=== PATIENT | male | born 1930 | race Caucasian/White ===

== ENCOUNTER → 2016-06-10 | Outpatient (CLI) | payer MEDICARE ==
[~2016-06-10] MED LIST: ACT300 PO; ANACIN PO; ASPCH81X PO; CRS20 PO; CYM30 PO; FINA5TAB4 PO; HYDR-5688 PO; ISR20 PO; LISI5TAB PO; LPR25 PO; METO25TA3 PO; PRED10TA PO; RIVA3CAP4 PO; SITA100T3 PO; SPRIN/30 INH; TAMS0.4C38 PO; TIOT1SPR INH; TIOTCAP INH; [UNRECOGNIZED DRUG - CODE] OPB; [UNRECOGNIZED DRUG - CODE] PO
[2016-06-10 18:23] LABS: BASO % 1.1 %; COMPLETE YES; EOS % 6.9 %; HEMATOCRIT 41.9 % (42-52); IG% 1.3 %; LYMPH % 20.1 %; LYMPH ABS # 1.76 K/uL (1.2-3.4); MEAN CELL VOLUME 94.4 fL (80-100); MEAN CORPUSCULAR HEMOGLOBIN 31.1 pg (25-34); MEAN CORPUSCULAR HGB CONC 32.9 g/dl (32-36); MEAN PLATELET VOLUME 10.3 fL (7.4-10.4); MONO % 17.9 %; NEUT % 52.7 %; PLATELET COUNT 243 K/uL (130-400); RED BLOOD COUNT 4.44 M/uL (4.7-6.1); WHITE BLOOD COUNT 8.75 K/uL (4.8-10.8)
[2016-06-10 18:32] LABS: BLOOD UREA NITROGEN 21 mg/dl (7-18); BUN/CREATININE RATIO 15.3 (10-20); CALCIUM 9.4 mg/dl (8.5-10.1); CARBON DIOXIDE 27 mmol/L (21-32); CHLORIDE 109 mmol/L (98-107); GLUCOSE 118 mg/dl (70-99); POTASSIUM 4.6 mmol/L (3.5-5.1); SODIUM 146 mmol/L (136-145)
[2016-06-10 18:43] LABS: THYROID STIMULATING HORMONE 0.627 uIu/ml (0.300-4.500)
== END | disposition home or self-care (01) ==
LOC: C.LABMFLN 14:45
PROVIDERS: ATTEND Family Medicine
DX: R26.81 Unsteadiness on feet (principal); J31.0 Chronic rhinitis; E86.0 Dehydration

== ENCOUNTER → 2016-06-13 | Outpatient (CLI) | payer MEDICARE | END | disposition home or self-care (01) | LOC: C.LABMFLN 12:19 | PROVIDERS: ATTEND Family Medicine | DX: R26.81 Unsteadiness on feet (principal); J31.0 Chronic rhinitis ==

== ENCOUNTER → 2016-06-17 | Outpatient (CLI) | payer MEDICARE | END | disposition home or self-care (01) | LOC: C.LABMFLN 07:48 | PROVIDERS: ATTEND Family Medicine | DX: R26.81 Unsteadiness on feet (principal); J31.0 Chronic rhinitis ==

== ENCOUNTER → 2016-07-20 | Outpatient (CLI) | payer MEDICARE ==
--- NOTE | 2016-07-20 12:25 | DIAGNOSTIC IMAGING REPORT ---
CT OF THE CHEST WITHOUT IV CONTRAST CLINICAL HISTORY: Solitary pulmonary nodule. Chronic obstructive pulmonary disease. COMPARISON STUDY: Chest CT August 13, 2014 and March 13, 2016 and chest radiograph February 17, 2016. CT DOSE: 427.53 mGycm TECHNIQUE: Axial images of the chest were obtained without IV contrast. Images were reviewed in the axial, sagittal, and coronal planes. IV contrast was not administered for this examination. FINDINGS: No enlarged axillary, mediastinal or hilar lymph nodes are present. There are median sternotomy wires and clips from bypass graft. Moderate cardiomegaly is again noted. There is no pericardial effusion. The lungs are suboptimally assessed due to respiratory motion. Ground glass opacities suggest atelectasis. Left lower lobe pneumonia shown on CT of March 13, 2016 has resolved. A 1 cm left lower lobe nodule is noted on image [id number]. This is unchanged since CT of March 13, 2016 and minimally increased in size since initial CT of January 31, 2010. There is a moderate amount of mucus within the distal trachea. No central obstructing mass is present. There is also mucus within the left mainstem bronchus and wall thickening of the bronchi within the left lower lobe. No suspicious osseous lesion is present. Left renal and hepatic cysts are better depicted on prior contrast enhanced studies. IMPRESSION: 1. 1 cm left lower lobe nodule, changed since CT of March 13, 2016 and minimally increased in size since CT of January 31, 2010. Despite relative stability, this lesion remains indeterminate and a slow-growing neoplasm would be difficult to exclude. 2. Mucus or debris within the trachea and left mainstem bronchus with diffuse bronchial wall thickening, greatest within the left lower lobe. Interval resolution of left lower lobe pneumonia. 3. No thoracic lymphadenopathy. Electronically signed by: Stan Oliva M.D. 07/20/2016 12:23 PM Dictated Date/Time: 07/20/2016 12:12 PM
== END | disposition home or self-care (01) ==
LOC: C.CTS 11:44
PROVIDERS: ATTEND Internal Medicine Pulmonary Disease
DX: R91.1 Solitary pulmonary nodule (principal); R91.8 Other nonspecific abnormal finding of lung field; J44.9 Chronic obstructive pulmonary disease, unspecified

== ENCOUNTER → 2016-08-03 | Outpatient (CLI) | payer MEDICARE ==
[2016-08-03 13:58] LABS: ESTIMATED AVERAGE GLUCOSE 137 mg/dl; HA1C FLAG Normal (Normal)
[2016-08-03 14:01] LABS: ALT/SGPT 20 U/L (12-78); BLOOD UREA NITROGEN 19 mg/dl (7-18); BUN/CREATININE RATIO 15.6 (10-20); CALCIUM 8.9 mg/dl (8.5-10.1); CARBON DIOXIDE 28 mmol/L (21-32); CHLORIDE 107 mmol/L (98-107); GLUCOSE 119 mg/dl (70-99); POTASSIUM 4.4 mmol/L (3.5-5.1); SODIUM 144 mmol/L (136-145)
[2016-08-03 14:04] LABS: CHOLESTEROL 148 mg/dl (0-200); CHOLESTEROL/HDL RATIO 2.3; HDL CHOLESTEROL 63 mg/dl; LDL CHOLESTEROL CALCULATED 62 mg/dl; TRIGLYCERIDES 114 mg/dl (0-150); VERY LOW DENSITY LIPOPROT CALC 23 mg/dl
== END | disposition home or self-care (01) ==
LOC: C.LABMFLN 07:24
PROVIDERS: ATTEND Family Medicine
DX: I25.10 Atherosclerotic heart disease of native coronary artery without angina pectoris (principal); E11.9 Type 2 diabetes mellitus without complications

== ENCOUNTER → 2016-10-22 | Outpatient (CLI) | payer MEDICARE | END | disposition home or self-care (01) | LOC: C.LABMFLN 14:13 | PROVIDERS: ATTEND Family Medicine | DX: J41.1 Mucopurulent chronic bronchitis (principal) ==

== ENCOUNTER → 2016-10-22 | Outpatient (CLI) | payer MEDICARE ==
--- NOTE | 2016-10-22 14:02 | DIAGNOSTIC IMAGING REPORT ---
CHEST 2 VIEWS ROUTINE CLINICAL HISTORY: Purulent bronchitis. COMPARISON STUDY: Chest radiograph February 17, [address] July 20, 2016. FINDINGS: Lung volumes are normal. There is no pneumothorax or pleural effusion. There are median sternotomy wires and clips from bypass grafting. There is no evidence of pulmonary edema. No consolidation is identified to suggest pneumonia. The appearance of the chest is unchanged. IMPRESSION: No acute cardiopulmonary findings. No change in appearance of the chest. Electronically signed by: Stan Oliva M.D. 10/22/2016 2:01 PM Dictated Date/Time: 10/22/2016 2:00 PM
== END | disposition home or self-care (01) ==
LOC: C.RAD 12:59
PROVIDERS: ATTEND Family Medicine
DX: J41.1 Mucopurulent chronic bronchitis (principal)

== ENCOUNTER 2016-11-12 14:08 | Emergency (ER) | payer MEDICARE ==
[~2016-11-12] VITALS: Ht 172.7 cm; Wt 81.2 kg
[~2016-11-12 14:08] MED LIST changes: -ACT300 PO; -LPR25 PO; -PRED10TA PO; -RIVA3CAP4 PO; -SITA100T3 PO
[2016-11-12 14:14] VITALS: Ht 172.7 cm; Wt 81.2 kg
[2016-11-12] MEDS ORDERED: ALBUT/IPRATROP 3MG/0.5MG NEB 3 ML VIAL INH STA (16:44)
[2016-11-12] MEDS ORDERED: METHYLPREDNISOLONE 125 MG VIAL IV STA (16:47)
--- NOTE | 2016-11-12 16:51 | EMERGENCY ROOM VISIT NOTE ---
History Report prepared by Matt: Linnette Lou Under the Supervision of: Dr. Marguerite Cooper M.D. First contact with patient: 16:31 Chief Complaint: RESPIRATORY PROBLEMS Stated Complaint: DIFF. BREATHING History of Present Illness The patient is an 86 year old male who presents to the Emergency Room with complaints of persistent respiratory problems that began five months ago. He currently rates his discomfort as a 3/10 in severity. The patient states that in May he was treated and evaluated in the hospital for bronchitis and pneumonia. He states that since then he has not felt well since then. The patient states that he has had a persistent, productive cough, reporting yellow sputum. He additionally reports persistent shortness of breath. The patient's states that the nebulizer treatments have helped to alleviate the shortness of breath. She reports that the patient has lost a significant amount of weight over the last two years. The patient's reports that the patient had a triple bypass several years ago. The patient additionally notes wheezing, that is worsened at night. He denies any lower extremity swelling. The patient additionally notes a pain to the right side of his chest with breathing today. Source of History: patient, spouse/significant other () Onset: five months ago Position: other (global) Symptom Intensity: 3/10 Quality: other (respiratory problems) Timing: other (persistent) Associated Symptoms: + cough, + chest pain, + SOB Note: Associated Symptoms: wheezing Review of Systems See HPI for pertinent positives & negatives. A total of 10 systems reviewed and were otherwise negative. Past Medical & Surgical Medical Problems: (1) CAD (coronary artery disease) (2) Depressive disorder (3) Disc displacement, lumbar (4) GERD (gastroesophageal reflux disease) (5) Glaucoma (6) Hypertension Surgical Problems: (1) History of lumbar surgery (2) History of tonsillectomy and adenoidectomy Family History Noncontributory due to advanced age Social History Smoking Status: Never Smoker Marital Status: Housing Status: lives with significant other Current/Historical Medications Scheduled Aspirin (Aspirin Chewable), 81 MG PO QAM Metoprolol Tartrate (Lopressor), 25 MG PO BID Prednisone (Prednisone), 10 MG PO DIRECTED Rivastigmine Tartrate (Exelon), 3 MG PO BID Rosuvastatin Calcium (Crestor), 20 MG PO HS Sitagliptin Phosphate (Januvia), 100 MG PO QPM Timolol Maleate (Ophth) (Timoptic Ocudose), 1 DROP OPB QAM Tiotropium [place] Monohydrate (Spiriva Respimat), 2 PUFFS INH QAM Ursodiol (Ursodiol), 300 MG PO BID [Anacin], 2 TABS PO PRN Scheduled PRN Hydrocodone/Acetaminophen 5MG/325MG ([place]an 5MG/325MG), 1 TAB PO TID PRN for Pain Allergies Coded Allergies: Oxycodone (Verified Adverse Reaction, Intermediate, ALTERED MS, 11/12/16) Codeine (Verified Adverse Reaction, Unknown, SEVERE CONSTIPATION, 11/12/16) Physical Exam Vital Signs Date Time Temp Pulse Resp B/P (MAP) Pulse Ox O2 Delivery O2 Flow Rate FiO2 11/12/16 19:43 36.4 64 21 152/65 83 11/12/16 19:13 64 21 11/12/16 19:02 152/65 11/12/16 18:43 61 20 11/12/16 18:31 150/63 11/12/16 18:17 154/62 11/12/16 18:13 153 23 83 11/12/16 18:08 60 20 154/62 94 Room Air 11/12/16 17:38 61 23 11/12/16 17:08 58 24 11/12/16 17:03 60 11/12/16 16:40 61 22 146/89 94 Room Air 11/12/16 16:39 146/89 11/12/16 16:05 63 16 141/69 96 Room Air 11/12/16 14:18 96 Room Air 11/12/16 14:14 36.4 62 20 140/73 97 Room Air Physical Exam Vital signs reviewed. General: Well-appearing male, in no significant distress. HEENT: No scleral icterus, PERRLA, neck supple. Atraumatic. Cardiovascular: Regular rate and rhythm, no extra sounds. Pulmonary: Forced expiratory wheezes, normal work of breathing. Abdomen: Soft, nontender, nondistended, positive bowel sounds. Musculoskeletal: Atraumatic, no peripheral edema. Neurologic: Patient awake alert and oriented x 3, full strength in all 4 extremities. Cranial nerves 2 through 12 grossly intact. Skin: Warm, dry, no rash Medical Decision & Procedures ER Provider Diagnostic Interpretation: X-ray results as stated below per interpretation by me and the radiologist: CHEST ONE VIEW PORTABLE CLINICAL HISTORY: SOB, cough, sputum COMPARISON STUDY: Chest radiograph October 22, 2016. FINDINGS: There are median sternotomy wires and clips from bypass grafting. There is no pneumothorax or pleural effusion. Mild cardiomegaly is noted. There is no radiographic evidence of pulmonary edema. Mild left basilar opacity is unchanged. This favors atelectasis. IMPRESSION: 1. Mild left basilar opacity. Atelectasis is favored. 2. Mild cardiomegaly without evidence of pulmonary edema. Electronically signed by: Stna Oliva M.D. 11/12/2016 6:37 PM Dictated Date/Time: 11/12/2016 6:36 PM Laboratory Results 11/12/16 17:15 Red Blood Count 5.19, Mean Corpuscular Volume 92.9, Mean Corpuscular Hemoglobin 30.1, Mean Corpuscular Hemoglobin Concent 32.4, Mean Platelet Volume 10.9, Neutrophils (%) (Auto) 46.3, Lymphocytes (%) (Auto) 23.5, Monocytes (%) (Auto) 12.5, Eosinophils (%) (Auto) 16.8, Basophils (%) (Auto) 0.7, Neutrophils # (Auto ) 4.15, Lymphocytes # (Auto) 2.11, Monocytes # (Auto) 1.12, Eosinophils # (Auto ) 1.51, Basophils # (Auto) 0.06 11/12/16 17:15 Test 11/12/16 17:15 11/12/16 17:23 White Blood Count 8.97 K/uL (4.8-10.8) Red Blood Count 5.19 M/uL (4.7-6.1) Hemoglobin 15.6 g/dL (14.0-18.0) Hematocrit 48.2 % (42-52) Mean Corpuscular Volume 92.9 fL (80-100) Mean Corpuscular Hemoglobin 30.1 pg (25-34) Mean Corpuscular Hemoglobin Concent 32.4 g/dl (32-36) Platelet Count 161 K/uL (130-400) Mean Platelet Volume 10.9 fL (7.4-10.4) Neutrophils (%) (Auto) 46.3 % Lymphocytes (%) (Auto) 23.5 % Monocytes (%) (Auto) 12.5 % Eosinophils (%) (Auto) 16.8 % Basophils (%) (Auto) 0.7 % Neutrophils # (Auto) 4.15 K/uL (1.4-6.5) Lymphocytes # (Auto) 2.11 K/uL (1.2-3.4) Monocytes # (Auto) 1.12 K/uL (0.11-0.59) Eosinophils # (Auto) 1.51 K/uL (0-0.5) Basophils # (Auto) 0.06 K/uL (0-0.2) RDW Standard Deviation 49.2 fL (36.4-46.3) RDW Coefficient of Variation 14.5 % (11.5-14.5) Immature Granulocyte % (Auto) 0.2 % Immature Granulocyte # (Auto) 0.02 K/uL (0.00-0.02) Anion Gap 4.0 mmol/L (3-11) Est Creatinine Clear Calc Drug Dose 41.9 ml/min Estimated GFR () 62.6 Estimated GFR (Non- 54.0 BUN/Creatinine Ratio 16.4 (10-20) Calcium Level 8.7 mg/dl (8.5-10.1) Magnesium Level 2.3 mg/dl (1.8-2.4) Total Bilirubin 0.4 mg/dl (0.2-1) Direct Bilirubin < 0.1 mg/dl (0-0.2) Aspartate Amino Transf (AST/SGOT) 9 U/L (15-37) Alanine Aminotransferase (ALT/SGPT) 17 U/L (12-78) Alkaline Phosphatase 88 U/L (45-117) Total Creatine Kinase 24 U/L (39-308) Creatine Kinase MB < 0.5 ng/ml (0.5-3.6) Creatine Kinase MB Ratio (0-3.0) Total Protein 7.2 gm/dl (6.4-8.2) Albumin 3.6 gm/dl (3.4-5.0) Bedside Troponin I < 0.030 ng/ml (0-0.045) RU-Tuz-H-Type Natriuretic Peptide 514 pg/ml (0-1800) Laboratory results per my review. Medications Administered Medications (Trade) Dose Ordered Sig/Jeannine Route Start Time Stop Time Status Last Admin Dose Admin Albuterol/ Ipratropium (Duoneb) 3 ml NOW STAT INH 11/12/16 16:44 11/12/16 16:47 DC 11/12/16 17:11 3 ML Methylprednisolone Sodium Succinate (Solu-Medrol IV) 125 mg NOW STAT IV 11/12/16 16:47 11/12/16 16:48 DC 11/12/16 17:11 125 MG ECG Indication: SOB/dyspnea Rate (beats per minute): 76 Rhythm: normal sinus Findings: no acute ischemic change, no ectopy, other (poor quality baseline) ED Course 1641: Past medical records reviewed. The patient was evaluated in room A12B. A complete history and physical examination was performed. 1643: Ordered Duoneb 3 ml INH. 1646: Ordered Solu-Medrol IV 125 mg IV. 1938: I reevaluated the patient and he is doing well. I discussed the exam findings with him and I discussed the treatment plan. He verbalized complete understanding and agreement. He is ready to go home. Medical Decision Differential diagnosis: Etiologies such as infections, reactive airway disease, pneumonia, pneumothorax , COPD, CHF, cardiac ischemia, pulmonary embolism, musculoskeletal, gastrointestinal, as well as others were entertained. Medication Reconciliation: I attest that I have personally reviewed the patient' s current medication list. Blood Pressure Screening: Patient was found to have an elevated blood pressure and was referred to their primary doctor for recheck and further treatment. This patient was evaluated and appeared to be in no significant distress. IV access was obtained and laboratory work was drawn. The patient was placed on the awake overnight monitor and found to be in a normal sinus rhythm. He was given a DuoNeb treatment and IV Solu-Medrol. Chest x-ray was performed and is significant for mild cardiomegaly and atelectasis, no focal infiltrate or failure. On reevaluation the patient is feeling much improved. He was given a prescription for prednisone taper and asked to use his nebulizer as prescribed. The patient will follow-up with his physician for reevaluation this week and return to the ER for worsening of symptoms or any medical concerns. Impression Primary Impression: COPD exacerbation Scribe Attestation The scribe's documentation has been prepared under my direction and personally reviewed by me in its entirety. I confirm that the note above accurately reflects all work, treatment, procedures, and medical decision making performed by me. Departure Information Dispostion Home / Self-Care Prescriptions Prednisone (Prednisone) 10 Mg Tab 10 MG PO DIRECTED, #31 TAB 40 mg for 4 days, 30 mg for 3 days, 20 mg for 2 days, 10 mg for 2 days. Prov: Marguerite Cooper M.D. 11/12/16 Referrals Darren Up M.D. (PCP) Josué Lizarraga, DO Forms HOME CARE DOCUMENTATION FORM, IMPORTANT VISIT INFORMATION, WORK / SCHOOL INSTRUCTIONS Patient Instructions My [facility] Additional Instructions Diagnosis: COPD exacerbation Prednisone 40 mg for 4 days, 30 mg for 3 days, 20 mg for 2 days, 10 mg for 2 days. Continue inhalers as prescribed. Follow-up with Dr. Lizarraga as arranged by case management. Return to the ER for worsening symptoms or any medical concerns.
[2016-11-12] MEDS ORDERED: SITA100T3 PO (17:28)
[2016-11-12] MEDS ORDERED: LPR25 PO (17:28)
[2016-11-12] MEDS ORDERED: RIVA3CAP4 PO (17:28)
[2016-11-12 17:33] LABS: BASO % 0.7 %; BASO ABS # 0.06 K/uL (0-0.2); COMPLETE YES; EOS % 16.8 %; HEMATOCRIT 48.2 % (42-52); IG% 0.2 %; LYMPH % 23.5 %; LYMPH ABS # 2.11 K/uL (1.2-3.4); MEAN CELL VOLUME 92.9 fL (80-100); MEAN CORPUSCULAR HEMOGLOBIN 30.1 pg (25-34); MEAN CORPUSCULAR HGB CONC 32.4 g/dl (32-36); MEAN PLATELET VOLUME 10.9 fL (7.4-10.4); MONO % 12.5 %; NEUT % 46.3 %; PLATELET COUNT 161 K/uL (130-400); RED BLOOD COUNT 5.19 M/uL (4.7-6.1); WHITE BLOOD COUNT 8.97 K/uL (4.8-10.8)
[2016-11-12] MEDS ORDERED: ACT300 PO (17:34)
[2016-11-12 17:42] LABS: POINT OF CARE PRO-BNP 514 pg/ml (0-1800); POINT OF CARE TROPONIN I < 0.030 ng/ml (0-0.045)
[2016-11-12 17:53] LABS: ALT/SGPT 17 U/L (12-78); AST/SGOT 9 U/L (15-37); BLOOD UREA NITROGEN 20 mg/dl (7-18); BUN/CREATININE RATIO 16.4 (10-20); CALCIUM 8.7 mg/dl (8.5-10.1); CARBON DIOXIDE 30 mmol/L (21-32); CHLORIDE 109 mmol/L (98-107); GLUCOSE 80 mg/dl (70-99); MAGNESIUM 2.3 mg/dl (1.8-2.4); SODIUM 143 mmol/L (136-145)
[2016-11-12 17:58] LABS: ALKALINE PHOSPHATASE 88 U/L (45-117)
--- NOTE | 2016-11-12 18:39 | DIAGNOSTIC IMAGING REPORT ---
CHEST ONE VIEW PORTABLE CLINICAL HISTORY: SOB, cough, sputum COMPARISON STUDY: Chest radiograph October 22, 2016. FINDINGS: There are median sternotomy wires and clips from bypass grafting. There is no pneumothorax or pleural effusion. Mild cardiomegaly is noted. There is no radiographic evidence of pulmonary edema. Mild left basilar opacity is unchanged. This favors atelectasis. IMPRESSION: 1. Mild left basilar opacity. Atelectasis is favored. 2. Mild cardiomegaly without evidence of pulmonary edema. Electronically signed by: Stan Oliva M.D. 11/12/2016 6:37 PM Dictated Date/Time: 11/12/2016 6:36 PM
[2016-11-12] MEDS ORDERED: PRED10TA PO (19:32)
[2016-11-12 19:43] VITALS: BP 152/65; PULSE 64; TEMP 36.4; O2SAT 83
== END 2016-11-12 19:44 | disposition home or self-care (01) ==
LOC: C.EDB 14:09 → C.EDA 19:44
DX: J44.1 Chronic obstructive pulmonary disease with (acute) exacerbation (principal); I51.7 Cardiomegaly; I10 Essential (primary) hypertension; I25.10 Atherosclerotic heart disease of native coronary artery without angina pectoris; Z79.899 Other long term (current) drug therapy

== ENCOUNTER → 2017-01-21 | Outpatient (CLI) | payer MEDICARE ==
[~2017-01-21] MED LIST changes: +ACT300 PO; -CYM30 PO; -FINA5TAB4 PO; -ISR20 PO; -LISI5TAB PO; +LPR25 PO; -METO25TA3 PO; +PRED10TA PO; +RIVA3CAP4 PO; +SITA100T3 PO; -SPRIN/30 INH; -TAMS0.4C38 PO; -TIOTCAP INH; -[UNRECOGNIZED DRUG - CODE] PO
[2017-01-21 18:35] LABS: BASO % 0.6 %; BASO ABS # 0.05 K/uL (0-0.2); COMPLETE YES; EOS % 19.8 %; IG% 0.4 %; LYMPH % 21.1 %; MEAN CELL VOLUME 94.6 fL (80-100); MEAN CORPUSCULAR HEMOGLOBIN 30.9 pg (25-34); MEAN CORPUSCULAR HGB CONC 32.6 g/dl (32-36); MEAN PLATELET VOLUME 10.6 fL (7.4-10.4); MONO % 14.2 %; NEUT % 43.9 %; PLATELET COUNT 178 K/uL (130-400); RED BLOOD COUNT 4.44 M/uL (4.7-6.1)
[2017-01-21 18:39] LABS: ALT/SGPT 18 U/L (12-78); BLOOD UREA NITROGEN 23 mg/dl (7-18); BUN/CREATININE RATIO 16.3 (10-20); CALCIUM 8.9 mg/dl (8.5-10.1); CARBON DIOXIDE 30 mmol/L (21-32); CHLORIDE 111 mmol/L (98-107); GLUCOSE 104 mg/dl (70-99); POTASSIUM 4.7 mmol/L (3.5-5.1); SODIUM 144 mmol/L (136-145)
[2017-01-21 18:50] LABS: ALKALINE PHOSPHATASE 72 U/L (45-117); AST/SGOT 12 U/L (15-37)
== END | disposition home or self-care (01) ==
LOC: C.LABMFLN 14:38
PROVIDERS: ATTEND Family Medicine
DX: J42 Unspecified chronic bronchitis (principal); R06.09 Other forms of dyspnea; R68.89 Other general symptoms and signs

== ENCOUNTER → 2017-01-22 | Outpatient (CLI) | payer MEDICARE | END | disposition home or self-care (01) | LOC: C.LABMFLN 08:28 | PROVIDERS: ATTEND Family Medicine | DX: J42 Unspecified chronic bronchitis (principal); R06.09 Other forms of dyspnea ==

== ENCOUNTER → 2017-06-15 | Outpatient (CLI) | payer MEDICARE ==
[~2017-06-15] MED LIST changes: -PRED10TA PO
[2017-06-15 12:44] LABS: BASO % 0.5 %; BASO ABS # 0.05 K/uL (0-0.2); EOS % 9.1 %; HEMATOCRIT 44.6 % (42-52); HEMOGLOBIN 14.4 g/dL (14.0-18.0); IG# 0.06 K/uL (0.00-0.02); LYMPH % 16.9 %; LYMPH ABS # 1.67 K/uL (1.2-3.4); MEAN CELL VOLUME 94.5 fL (80-100); MEAN CORPUSCULAR HEMOGLOBIN 30.5 pg (25-34); MEAN CORPUSCULAR HGB CONC 32.3 g/dl (32-36); MONO % 15.4 %; MONO ABS # 1.53 K/uL (0.11-0.59); NEUT % 57.5 %; PLATELET COUNT 189 K/uL (130-400); RED CELL DISTRIBUTION WIDTH CV 13.8 % (11.5-14.5); RED CELL DISTRIBUTION WIDTH SD 47.5 fL (36.4-46.3); WHITE BLOOD COUNT 9.91 K/uL (4.8-10.8)
[2017-06-15 13:43] LABS: BLOOD UREA NITROGEN 22 mg/dl (7-18); CALCIUM 9.1 mg/dl (8.5-10.1); CARBON DIOXIDE 29 mmol/L (21-32); CREATININE 1.32 mg/dl (0.60-1.40); GLUCOSE 70 mg/dl (70-99); POTASSIUM 4.3 mmol/L (3.5-5.1); SODIUM 139 mmol/L (136-145)
== END | disposition home or self-care (01) ==
LOC: C.LABMFLN 09:53
PROVIDERS: ATTEND Family Medicine
DX: Z00.00 Encounter for general adult medical examination without abnormal findings (principal); R05 Cough

== ENCOUNTER → 2017-06-16 | Outpatient (CLI) | payer MEDICARE | END | disposition home or self-care (01) | LOC: C.LABMFLN 09:47 | PROVIDERS: ATTEND Family Medicine | DX: Z00.00 Encounter for general adult medical examination without abnormal findings (principal); R05 Cough ==

== ENCOUNTER → 2017-09-22 | Outpatient (CLI) | payer MEDICARE ==
[2017-09-22 18:03] LABS: HEMOGLOBIN 13.9 g/dL (14.0-18.0); MEAN CELL VOLUME 94.3 fL (80-100); MEAN CORPUSCULAR HEMOGLOBIN 30.5 pg (25-34); MEAN CORPUSCULAR HGB CONC 32.3 g/dl (32-36); MEAN PLATELET VOLUME 11.1 fL (7.4-10.4); PLATELET COUNT 162 K/uL (130-400); RED CELL DISTRIBUTION WIDTH CV 15.4 % (11.5-14.5); RED CELL DISTRIBUTION WIDTH SD 53.6 fL (36.4-46.3); WHITE BLOOD COUNT 8.32 K/uL (4.8-10.8)
[2017-09-22 18:22] LABS: PTT PATIENT 26.8 SECONDS (21.0-31.0)
== END | disposition home or self-care (01) ==
LOC: C.LABMFLN 11:32
PROVIDERS: ATTEND Urology
DX: R31.29 Other microscopic hematuria (principal); R31.0 Gross hematuria; R93.41 Abnormal radiologic findings on diagnostic imaging of renal pelvis, ureter, or bladder; N32.89 Other specified disorders of bladder

== ENCOUNTER → 2017-10-01 | Outpatient (CLI) | payer MEDICARE | END | disposition home or self-care (01) | LOC: C.PATHSPEC 15:05 | PROVIDERS: ATTEND Urology | DX: N32.89 Other specified disorders of bladder (principal) ==